=== PATIENT | female | born 1980 | race Caucasian/White ===

== ENCOUNTER 2024-02-24 19:28 | Emergency (ER) | payer SELFPAY ==
[2024-02-24 19:30] VITALS: BP 107/87; PULSE 90; RESP 18; TEMP 36.9; O2SAT 100; BMI 35.2
--- NOTE | 2024-02-24 20:04 | [facility].EDGENADL ---
Discharge Plan Disposition Patient Disposition: Home, Self-Care Prescriptions Prescriptions: New Preparation H 0.25-14-74.9 % ointment 1 applic MD TID PRN (Reason: hemorrhoids) Qty: 28 0RF Referrals Follow up/Referrals: Provider,MD Skye [Primary Care Provider] - See instructions Maurilio Jean Baptiste MD [Staff Physician] - See instructions Ag Anthony MD [Staff Physician] - See instructions Activity Restrictions/Add. Instructions Additional Instructions/Restrictions: Please take [id number] Preparation H as discussed as needed for your bleeding external hemorrhoids and follow-up with Dr. Jesus for surgical excision. Additionally you are found incidentally to have hyperglycemia and I recommend that you follow-up with Dr. Jean Baptiste to establish care as a primary care doctor for management of your hyperglycemia and evaluation of possible diabetes. Clinical Impressions Clinical Impression: Bleeding external hemorrhoids, Hyperglycemia Instructions Patient Instructions: DI for Gastrointestinal Bleeding Discharge ED Provider: Lyle Herrera General Adult HPI General Chief complaint: GI Bleed Stated complaint: bleeding from rectum constantly few days Time Seen by Provider: 02/24/24 19:51 Mode of Arrival: Ambulatory Source of Information: Patient Limitations: No Limitations Description of Symptoms (Recalled from ER Triage Doc. by RN): Pt presents to ED for rectal bleeding X 2 days. Pt states she has a hx of hemorrhoids but states she's never bled this much or for this long. Pt is A&O*4 at this time. History of Present Illness HPI narrative: Patient is a 44-year-old female presenting today with rectal bleeding. She has had bright red blood per rectum over the last 24 hours with some lower abdominal or rectal discomfort. States has been dealing with significant hemorrhoids over the last decade but has never had any surgical intervention or treatment for this. No history of diverticulosis that she is aware of. No significant abdominal pain. No fevers or chills. Does states she has had to wear a depend given the amount of bleeding that she has had. No other lightheadedness or other symptoms associate with this. Related Data Previous Rx's Medication Instructions Recorded phenylephrine 0.25 %-mineral oil 1 applic MD TID PRN hemorrhoids 02/24/24 14 %-petrolatm 74.9 % rectal #28 grams ointment (Preparation H) Allergies Allergy/AdvReac Type Severity Reaction Status Date / Time No Known Allergies Allergy Verified 02/24/24 20:02 [facility] Disclaimer: The information contained in this section may have been updated after the patient was seen, as this information can be updated by other users. Social History Smoking Status: Current every day smoker alcohol intake: never current occupational status: other Travel in the last 8 weeks: None ROS Obtained: Yes All systems reviewed & no additional complaints except as documented Physical Exam General General appearance: alert Respiratory Respiratory exam: Present normal lung sounds bilaterally Cardiovascular Cardiovascular exam: Present regular rate Rectal Exam Rectal exam: Present other (Numerous very large external hemorrhoids that are actively bleeding none that appear to be thrombosed) Neurological Exam Neurological exam: Present alert and oriented X3 Medical Decision Making Hang Inquiry Pt receiving controlled substance: No Vital Signs: 02/24/24 19:30 Temperature 98.4 F Temperature Source Oral Pulse Rate [Left] 90 Respiratory Rate 18 Blood Pressure [Right Arm] 107/87 L Blood Pressure Mean [Right Arm] 93 02 Sat by Pulse Oximetry 100 Oxygen Delivery Method Room Air Lab Data Lab results reviewed: Yes I reviewed the patient's lab results. Lab Results 02/24/24 19:47: WBC 13.8 H, RBC 4.57, Hgb 13.9, Hct 42.9, MCV 94.0, MCH 30.5, MCHC 32.5, RDW 14.3, Plt Count 241, MPV 9.8, Neut % (Auto) 71.1, Lymph % (Auto) 20.5, [place] % (Auto) 5.3, Eos % (Auto) 2.0, Baso % (Auto) 1.2, Neut # (Auto) 9.8 H, Lymph # (Auto) 2.8, [place] # (Auto) 0.7, Eos # (Auto) 0.3, Baso # (Auto) 0.2, PT 10.6, INR 0.98, APTT 27.1, Sodium 138, Potassium 3.6, Chloride 103, Carbon Dioxide 27, Anion Gap 11.6, BUN 8, Creatinine 1.00, Estimated Creat Clear 121, Estimated GFR 61, Est GFR ( Amer) 73, Glucose 211 H, Calcium 10.5 H, Total Bilirubin 0.5, AST 30, ALT 26, Alkaline Phosphatase 90, Total Protein 8.0, Albumin 4.4, Globulin 3.6 H, Albumin/Globulin Ratio 1.2 05/26/24 19:47 02/24/24 19:47 Orders (Tests/Meds): ORDERS Category Date Time Status CBC w/Auto Diff [Complete Blood Count Auto Diff] Stat Lab 02/24/24 19:47 Completed CMP [Comprehensive Metabolic Panel] Stat Lab 02/24/24 19:47 Completed PT/PTT Stat Lab 02/24/24 19:47 Completed Medical Decision Narrative: Is a hemodynamically stable 44-year-old with a benign abdominal exam presenting today with very large external actively bleeding hemorrhoids. She is never had any intervention for this before I will prescribe her Preparation H which may help with some of the bleeding but she will need to follow-up with a general surgeon as these need to be excised surgically. She is aware of this I do not suspect an alternative diagnosis at this point her abdominal exam is benign I am not suspicious of any type of surgical emergency such as diverticulitis etc. Will reassess after her basic blood work is completed. Patient's H&H is stable hemodynamically she remained stable. Serial exams are benign. Patient has several other findings that need follow-up. First she has hyperglycemia she does not have a history of diabetes this needs to be worked up further by primary care doctor she was referred to Dr. Jean Baptiste. 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 She was having some small active oozing placed some Surgicel on the external hemorrhoid advised that she take Preparation H and to follow-up with the surgeon and return emerged part with any significant worsening of her symptoms. Critical Care Critical Care Time Critical Care Time: No
[2024-02-24 20:16] LABS: Basophils # 0.2 K/mm3 (0-0.2); Basophils % 1.2 % (0.1-2.0); Eosinophils # 0.3 K/mm3 (0.0-0.4); Hematocrit 42.9 % (37.0-47.0); Hemoglobin 13.9 g/dL (12.2-16.2); Lymphocytes # 2.8 K/mm3 (0.7-4.5); Lymphocytes % 20.5 % (10-50); Mean Corpuscular HGB Conc 32.5 g/dL (31.8-35.4); Mean Corpuscular Hemoglobin 30.5 pg (27.0-31.2); Mean Platelet Volume 9.8 fl (7.4-10.4); Monocytes # 0.7 K/mm3 (0.1-1.0); Monocytes % 5.3 % (1.7-9.3); Neutrophils # 9.8 K/mm3 (1.8-7.8); Neutrophils % 71.1 % (37.0-80.0); Platelet Count 241 K/mm3 (142-424); Red Blood Count 4.57 M/mm3 (4.20-5.40); Red Cell Distribution Width 14.3 % (11.5-17.5); White Blood Count 13.8 K/mm3 (4.8-10.8)
[2024-02-24 20:23] LABS: Activated Partial Thrombo Time 27.1 seconds (22.8-30.6); INR 0.98 (0.9-1.1); Prothrombin Time 10.6 seconds (10.1-12.5)
[2024-02-24 20:24] LABS: Alanine Aminotransferase 26 U/L (12-78); Albumin Level 4.4 g/dl (3.5-5.0); Albumin/Globulin Ratio 1.2 (1.1-1.8); Alkaline Phosphatase 90 U/L (38-126); Anion Gap 11.6 mEq/L (5-15); Aspartate Amino Transferase 30 U/L (14-36); Bilirubin,Total 0.5 mg/dl (0.2-1.3); Blood Urea Nitrogen 8 mg/dl (7-17); Calcium 10.5 mg/dl (8.4-10.2); Carbon Dioxide 27 mmol/L (22.0-30.0); Chloride 103 mmol/L (98-107); Creatinine Clearance Estimated 121 mL/min (50-200); Estimated Glomerular Filt Rate 61 ml/min (>60); GFR (African American) 73 ML/MIN (>60); Globulin 3.6 g/dL (1.3-3.2); Glucose 211 mg/dl (74-100); Potassium 3.6 mmoL/L (3.5-5.1); Sodium 138 mmol/L (136-145)
[2024-02-24 20:48] VITALS: BP 150/88; PULSE 76; RESP 16; TEMP 36.9; O2SAT 98
== END 2024-02-24 20:58 | disposition home or self-care (01) ==
PROVIDERS: Emergency Provider Student in an Organized Health Care Education/Training Program
DX: K64.8 Other hemorrhoids (principal); K62.5 Hemorrhage of anus and rectum; R73.9 Hyperglycemia, unspecified
CPT/HCPCS: 80053; 85025; 85610; 85730; 99283